=== PATIENT | male | born 1970 | race Two or more races ===

== ENCOUNTER 2024-07-02 16:59 | Emergency (ER) | payer OTHER ==
[~2024-07-02] VITALS: Ht 170.2 cm; Wt 73.5 kg
[2024-07-02] MEDS ORDERED: IBUPROFEN 800 MG TABLET ONE (17:44)
[2024-07-02] MEDS ORDERED: IBUP-1957 PO (17:58)
[2024-07-02 18:11] VITALS: BP 123/73; O2SAT 98
[2024-07-02] MEDS: IBUPROFEN 800 MG TABLET PO ONE (18:28)
== END 2024-07-02 18:15 | disposition home or self-care (01) ==
LOC: ER 17:31
DX: S93.402A Sprain of unspecified ligament of left ankle, initial encounter (principal); E11.9 Type 2 diabetes mellitus without complications; Z79.1 Long term (current) use of non-steroidal anti-inflammatories (NSAID); Z88.2 Allergy status to sulfonamides; W01.0XXA Fall on same level from slipping, tripping and stumbling without subsequent striking against object, initial encounter; Y93.89 Activity, other specified; Y92.89 Other specified places as the place of occurrence of the external cause; Y99.8 Other external cause status
CPT/HCPCS: 73600; A4606; A4663

== ENCOUNTER 2024-08-01 18:25 | Emergency (ER) | payer OTHER ==
[~2024-08-01] VITALS: Ht 170.2 cm; Wt 73.5 kg
[~2024-08-01 18:25] MED LIST: IBUP-1957 PO
[2024-08-01] MEDS ORDERED: DIPH25CA83 PO (19:06)
[2024-08-01] MEDS ORDERED: CLIN300C12 PO (19:06)
[2024-08-01] MEDS ORDERED: CLINDAMYCIN HCL 300 MG CAPSULE ONE (19:11)
[2024-08-01] MEDS: CLINDAMYCIN HCL 150 MG CAPSULE PO ONE (19:18)
[2024-08-01 19:19] VITALS: O2SAT 96
== END 2024-08-01 19:19 | disposition home or self-care (01) ==
LOC: ER 18:25
DX: L08.89 Other specified local infections of the skin and subcutaneous tissue (principal); Z79.1 Long term (current) use of non-steroidal anti-inflammatories (NSAID); Z88.2 Allergy status to sulfonamides
CPT/HCPCS: A4606; A4663

== ENCOUNTER 2024-08-04 15:51 | Emergency (ER) | payer OTHER ==
[~2024-08-04] VITALS: Ht 162.6 cm; Wt 72.6 kg
[~2024-08-04 15:51] MED LIST changes: +CLIN300C12 PO; +DIPH25CA83 PO
[2024-08-04 17:29] VITALS: BP 109/61; TEMP 97.8; O2SAT 99
== END 2024-08-04 17:01 | disposition home or self-care (01) ==
LOC: ER 15:51
DX: L08.9 Local infection of the skin and subcutaneous tissue, unspecified (principal); Z79.1 Long term (current) use of non-steroidal anti-inflammatories (NSAID); Z88.2 Allergy status to sulfonamides
CPT/HCPCS: A4606; A4663

== ENCOUNTER 2024-09-19 15:42 | Emergency (ER) | payer OTHER ==
[~2024-09-19] VITALS: Ht 170.2 cm; Wt 73.5 kg
[2024-09-19 15:43] VITALS: O2SAT 98
[2024-09-19] MEDS ORDERED: CEFD300C3 PO (16:15)
== END 2024-09-19 16:18 | disposition home or self-care (01) ==
LOC: ER 15:42
DX: L03.114 Cellulitis of left upper limb (principal); M79.632 Pain in left forearm; Z79.1 Long term (current) use of non-steroidal anti-inflammatories (NSAID); Z88.2 Allergy status to sulfonamides
CPT/HCPCS: A4606; A4663

== ENCOUNTER 2024-11-20 16:54 | Emergency (ER) | payer MEDICAID, OTHER ==
[~2024-11-20] VITALS: Ht 167.6 cm; Wt 72.6 kg
[~2024-11-20 16:54] MED LIST changes: +CEFD300C3 PO
[2024-11-20 17:10] VITALS: BP 131/76
[2024-11-20] MEDS ORDERED: IBUPROFEN 400 MG TABLET ONE (17:33)
[2024-11-20] MEDS ORDERED: ACETAMINOPHEN 500 MG TABLET ONE (17:33)
[2024-11-20] MEDS: ACETAMINOPHEN 500 MG TABLET PO ONE (17:36)
[2024-11-20] MEDS: IBUPROFEN 400 MG TABLET PO ONE (17:36)
[2024-11-20 17:42] LABS: PLATELET COUNT (AUTO) 305 K/uL (152-348); RED BLOOD CELL COUNT(AUTO) 5.62 MIL/uL (4.06-5.63); RED CELL DISTRIBUTION WIDTH 14.6 % (12.1-16.2); WHITE BLOOD COUNT (AUTO) 4.5 K/uL (3.6-10.2)
[2024-11-20 17:49] LABS: CREATININE 0.9 mg/dL (0.6-1.3); SODIUM SERUM 135.0 mmol/L (136-145); UREA NITROGEN, BLOOD 10.0 mg/dL (7-18)
[2024-11-20 18:01] LABS: ASPARTATE AMINOTRANSFERASE 24.0 U/L (15-37); TOTAL PROTEIN, SERUM 7.4 g/dL (6.4-8.2)
[2024-11-20 18:18] LABS: BAND % (MANUAL) 1 % (0-10); EOSINOPHILS % (MANUAL) 1 % (0-8); LYMPHOCYTES % (MANUAL) 33 % (20-40); MONOCYTES % (MANUAL) 12 % (2-10); NEUTROPHILS % (MANUAL) 53 % (42-75); PLATELET ESTIMATE ADEQUATE
[2024-11-20 18:21] VITALS: BP 131/76; TEMP 99; O2SAT 95
== END 2024-11-20 18:22 | disposition home or self-care (01) ==
LOC: ER 16:57
DX: U07.1 COVID-19 (principal); F19.20 Other psychoactive substance dependence, uncomplicated; Z79.1 Long term (current) use of non-steroidal anti-inflammatories (NSAID); Z88.2 Allergy status to sulfonamides; R94.31 Abnormal electrocardiogram [ECG] [EKG]
CPT/HCPCS: 36415; 70030-TC; A4606; A4663; A9150